=== PATIENT | female | born 1995 | race Caucasian/White ===

== ENCOUNTER → 2018-04-11 | Outpatient (CLI) | payer OTHER ==
--- NOTE | 2018-04-11 15:52 | RADIOLOGY IMAGING REPORT ---
FACILITY: [facility] - [place] PATIENT NAME: SHELLEY LOPEZ : [id number] MR: [id number] V: [id number] EXAM DATE: ORDERING PHYSICIAN: RATNA DELONG TECHNOLOGIST: Hammad Chapman RDMS, RD PROCEDURE:US LEFT BREAST COMPLETE COMPARISON:Left breast Ultrasound of 11/26/16 INDICATIONS:mass Left breast FINDINGS: In the 2 o'clock position of the Left breast 10cm from the nipple again noted is the well circumscribed ovoid hypoechoic nodule with gated acoustic enhancement. This mass has increased in size & now measures 1.8 x 1.3 x 1.9cm as opposed to 1.6 x 1 x1.5cm. There is also a small ovoid hypoechoic nodule with acoustic enhancement immediately adjacent to this mass measuring 8 x 5 x 9mm. Although these may simply represent fibroadenomas, given the interval increase in size Ultrasound guided core biopsy is recommended for further evaluation. DIAGNOSTIC CATEGORY 4--SUSPICIOUS FOR MALIGNANCY. RECOMMENDATIONS: ULTRASOUND-GUIDED CORE BIOPSY: LEFT BREAST. IMPRESSION: 1. BIRADS 4a: Suspicious for malignancy. Ultrasound guided core biopsy of the hypoechoic mass in the 2 o'clock position of the Left breast recommended for further evaluation. Dictated by: Serene Bueno M.D. on 04/11/2018 at 14:05 Transcribed by: SALLY on 04/11/2018 at 15:41 Approved by: Serene Bueno M.D. on 04/11/2018 at 15:50 [facility]
== END ==
LOC: US 04:07
PROVIDERS: ATTEND Pediatrics Adolescent Medicine
DX: N63.21 Unspecified lump in the left breast, upper outer quadrant (principal)

== ENCOUNTER 2018-05-12 15:47 | Outpatient (RCR) | payer OTHER ==
[2018-05-12 16:08] LABS: INR 0.98
--- NOTE | 2018-05-15 11:56 | RADIOLOGY IMAGING REPORT ---
FACILITY: [facility] - [place] PATIENT NAME: SHELLEY LOPEZ : [id number] MR: [id number] V: [id number] EXAM DATE: [id number] ORDERING PHYSICIAN: ISRAEL GILL TECHNOLOGIST: Tereza Brush RDMS PROCEDURE: ULTRASOUND GUIDED LEFT BREAST OF 2 MASSES IN THE 2 O'CLOCK POSITION OF THE LEFT BREAST. COMPARISON: None. INDICATIONS: BREAST MASS FINDINGS: Informed consent was obtained including potential risks and complications such as bleeding and infection. The patient's Left breast was prepped and draped in the usual sterile fashion. Local anesthesia was accomplished with 1% lidocaine. Utilizing sonographic guidance three 12 Gauge core biopsies were obtained through each of the 2 masses in the 2 o'clock position of the Left breast. Biopsy clips were placed in both biopsy sites. The samples were placed in formalin and sent to the Laboratory for evaluation. The procedure was accomplished without apparent complication. IMPRESSION: 1. Successful sonographically guided biopsy of 2 solid masses in the 2 o'clock position of the Left breast. Dictated by: Serene Bueno M.D. on 05/14/2018 at 16:59 Transcribed by: LEISA on 05/15/2018 at 10:21 Approved by: Serene Bueno M.D. on 05/15/2018 at 11:55 [facility]
== END 2018-05-14 18:00 | disposition home or self-care (01) ==
LOC: US 15:47 → EDSTATUS 05-14 15:46 → US 05-14 18:00
PROVIDERS: ATTEND Physician Assistant
DX: Z01.812 Encounter for preprocedural laboratory examination (principal); N60.22 Fibroadenosis of left breast
CPT/HCPCS: 19083; 36415; 85610; 88305; 88344